=== PATIENT | female | born 1960 | race Caucasian/White ===

== ENCOUNTER 2022-01-22 13:03 | Outpatient (CLI) | payer BC, SELFPAY ==
--- NOTE | 2022-01-22 13:10 | MM_ITS ---
WS: [id number] RIGHT 3D TOMOSYNTHESIS DIGITAL MAMMOGRAPHY WITH CAD CLINICAL INFORMATION: HX OF BREAST CA;LT MAST HISTORY: LEFT mastectomy. COMPARISON: 2011 and TECHNIQUE: 3 views of the right breast were obtained. FINDINGS: Scattered fibroglandular densities of the right breast. Incidental lucent centered calcification RIGH T breast. A few incidental punctate calcifications posterior depth RIGHT breast. No suspicious focal mass, asymmetry, calcifications, or architectural distortion. No evidence of behzad gnancy. MM/[place] [id number] IMPRESSION: BI-RADS: 2-Benign FOLLOW UP: 1 Year Follow-up Recommend return to annual diagnostic mammography.
== END 2022-01-22 13:04 | disposition home or self-care (01) ==
LOC: RAD 13:05
PROVIDERS: Visit Provider Family Medicine
DX: Z85.3 Personal history of malignant neoplasm of breast (principal); Z90.12 Acquired absence of left breast and nipple
CPT/HCPCS: 77061

== ENCOUNTER 2023-03-01 13:00 | Outpatient (CLI) | payer BC, SELFPAY ==
--- NOTE | 2023-03-01 13:12 | MR_ITS ---
WS: [id number] INDICATION: RIGHT humerus pain TECHNIQUE: Sagittal T1, sagittal STIR, coronal T1, coronal STIR, axial PD, axial T2 fat sat. FINDINGS: Normal bone marrow signal in the humerus. Normal humeral head and neck. No acute fractures. Normal humeral shaft. Normal bone marrow signal in the partially visualized elbow. Biceps tendon appears intact in the bicipital groove. Normal visualized soft tissues. No other suspic ious findings. MR/MR humerus RT wo con* [id number] IMPRESSION: 1. No acute humeral findings. 2. Normal bone marrow signal. No acute fractures. 3. Normal visualized soft tissues. 4. Biceps tendon visualized in the bicipital groove.
== END 2023-03-01 13:01 | disposition home or self-care (01) ==
LOC: RAD 13:05
PROVIDERS: PCP Family Medicine; Visit Provider Family Medicine
DX: M25.511 Pain in right shoulder (principal)
CPT/HCPCS: 73218

== ENCOUNTER 2023-11-15 12:39 | Outpatient (CLI) | payer BC, SELFPAY ==
--- NOTE | 2023-11-15 13:05 | MM_ITS ---
WS: [id number] Right breast diagnostic 3D tomosynthesis digital mammogram, 11/15/2023 Clinical Data: ANNUAL - HX BR CA; LT MST Comparison: 01/22/2022, 06/01/2016, 01/06/2013, 12/31/2011, 09/24/2009. Findings: The right breast shows fibroglandular tissue. There are no spiculated masses nor clustered calcificat ions. There are no secondary signs of carcinoma. Impression: 1. Negative right breast mammogram unchanged. 2. Recommend annual right breast mammogram. MM/[place] [id number] BIRADS: 1-Negative FOLLOW UP: 1 Year Follow-up The CAD liner checker was used.
== END 2023-11-15 12:40 | disposition home or self-care (01) ==
LOC: RAD 12:40
PROVIDERS: PCP Family Medicine; Visit Provider Family Medicine
DX: Z85.3 Personal history of malignant neoplasm of breast (principal); Z90.12 Acquired absence of left breast and nipple
CPT/HCPCS: 77061; G0279